=== PATIENT | male | born 1960 | race African-American/Black ===

== ENCOUNTER 2017-04-27 16:07 | Observation (INO) | payer OTHER ==
[~2017-04-27] VITALS: Ht 175.3 cm; Wt 93.0 kg
[~2017-04-27 16:07] MED LIST: AMLO10 PO; ASPI81 CHEW; CARB100C PO; CLON1TAB PO; LEVE500 PO; METO25CR PO; METO50CR PO; SERT50 PO; SPIR50TA21 PO; ULTR50TA PO
[2017-04-27 16:29] VITALS: BP 190/103; PULSE 65; RESP 20; TEMP 98.9; O2SAT 99
[2017-04-27 17:00] VITALS: RESP 18; O2SAT 99
[2017-04-27] MEDS ORDERED: SODIUM CHLORIDE 0.9% FLUSH 10 ML FLUSH IVF PRN (17:00)
[2017-04-27] MEDS ORDERED: ASPIRIN 81 MG CHEW TAB PO ONE (17:00)
[2017-04-27] MEDS ORDERED: LOSA50TA PO (17:06)
[2017-04-27] MEDS ORDERED: CLON0.5T PO (17:06)
[2017-04-27] MEDS ORDERED: KEPP750T PO (17:06)
[2017-04-27] MEDS ORDERED: ASPI81TA81 PO (17:06)
--- NOTE | 2017-04-27 17:07 | PD ---
HPI Chief Complaint: Chest Pain Time Seen by Provider: 17:01 Travel History International Travel<30 days: No Contact w/Intl Traveler<30days: No Traveled to known affect area: No History of Present Illness HPI Patient is a 57 year old male presenting to the emergency evaluation of chest pain. Patient states pain is intermittent, sharp, stabbing and pressure-like. It lasts for several minutes. He reports nausea and radiation to left arm. He denies any shortness of breath, vomiting, fever, chills. Patient had this same incident to 3 weeks ago, he was admitted to [facility] at that time. Patient has an implanted loop recorder that was placed several months ago. He recently started seeing a music orchestrator, Dr. Fabian. Past medical history significant for hypertension, hyperlipidemia, depression, PTSD, A. fib with ablation, SVT. Loop recorder was interrogated during his last visit and he was noted to have incidences of SVT per his report. PFSH Past Medical History Hx Anticoagulant Therapy: Yes (BABY ASPIRIN DAILY ) Atrial Fibrillation: Yes (status post ablation) Depression: Yes Heart Rhythm Problems: Yes (SVT, atrial fibrillation status post ablation) High Cholesterol: Yes Chest Pain: Yes Diabetes: No (See EMR) Endocrine: No Gastrointestinal Disorders: Yes Hypertension: Yes Immune Disorder: No Psychiatric: Yes (PTSD) Past Surgical History Genitourinary Surgery: Yes ("TUMOR REMOVED FROM VESCULAR TUBE") Other Surgery: Yes Social History Alcohol Use: No Tobacco Use: No Substance Use: No Allergies-Medications (Allergen,Severity, Reaction): Coded Allergies: Flexeril (Verified Allergy, Intermediate, Itching, 04/27/17) Reported Meds & Prescriptions Reported Meds & Active Scripts Active Reported Aspir-81 (Aspirin) 81 Mg Tabdr 81 Mg PO DAILY Clonazepam 0.5 Mg Tab 0.5 Mg PO BID Keppra (Levetiracetam) 750 Mg Tab 1,500 Mg PO BID Losartan (Losartan Potassium) 50 Mg Tab 50 Mg PO BID Review of Systems Except as stated in HPI: all other systems reviewed are Neg HENT: No: Headaches, Lightheadedness Cardiovascular: Positive: Chest Pain or Discomfort, No: Palpitations, Tachycardia Respiratory: No: Shortness of Breath Gastrointestinal: Positive: Nausea Musculoskeletal: No: Myalgias Neurologic: No: Weakness, Dizziness, Focal Abnormalities Physical Exam Narrative GENERAL: Well-developed, well-nourished, well-appearing male SKIN: Warm and dry. HEAD: Atraumatic. Normocephalic. EYES: Pupils equal and round. No scleral icterus. No injection or drainage. ENT: No nasal bleeding or discharge. Mucous membranes pink and moist. NECK: Trachea midline. No JVD. CARDIOVASCULAR: Regular rate and rhythm. RESPIRATORY: No accessory muscle use. Clear to auscultation. Breath sounds equal bilaterally. GASTROINTESTINAL: Abdomen soft, non-tender, nondistended. Hepatic and splenic margins not palpable. MUSCULOSKELETAL: Extremities without clubbing, cyanosis, or edema. No obvious deformities. NEUROLOGICAL: Awake and alert. No obvious cranial nerve deficits. Motor grossly within normal limits. Five out of 5 muscle strength in the arms and legs. Normal speech. PSYCHIATRIC: Appropriate mood and affect; insight and judgment normal. Data Data Last Documented VS Vital Signs Date Time Temp Pulse Resp B/P Pulse Ox O2 Delivery O2 Flow Rate FiO2 04/27/17 19:50 145/71 04/27/17 18:15 68 17 99 Room Air 04/27/17 16:29 98.9 Orders Electrocardiogram (04/27/17 16:49) Ckmb (Isoenzyme) Profile (04/27/17 16:49) Complete Blood Count With Diff (04/27/17 16:49) Comprehensive Metabolic Panel (04/27/17 16:49) Magnesium (Mg) (04/27/17 16:49) Prothrombin Time / Inr (Pt) (04/27/17 16:49) Act Partial Throm Time (Ptt) (04/27/17 16:49) Troponin I (04/27/17 16:49) Lipase (04/27/17 16:49) Chest, Single Ap (04/27/17 16:49) Ecg Monitoring (04/27/17 16:49) Bilateral Bp Monitoring (04/27/17 16:49) Iv Access Insert/Monitor (04/27/17 16:49) Oximetry (04/27/17 16:49) Oxygen Administration (04/27/17 16:49) Aspirin Chew (Aspirin Chew) (04/27/17 17:00) Sodium Chloride 0.9% Flush (Ns Flush) (04/27/17 17:00) CKMB (04/27/17 17:00) CKMB% (04/27/17 17:00) Nitroglycerin Sl (Nitrostat Sl) (04/27/17 18:30) Morphine Inj (Morphine Inj) (04/27/17 18:30) Ondansetron Inj (Zofran Inj) (04/27/17 18:30) Hydralazine Inj (Apresoline Inj) (04/27/17 18:45) Activity Bed Rest With Brp (04/27/17 19:50) Vital Signs (Adult) Q4H (04/27/17 19:50) Cardiac Rhythm .As Directed (04/27/17 19:50) Notify Dr: Other .PRN (04/27/17 19:50) Notify Dr. Parameters (04/27/17 19:50) Resp Oxygen Nasal Cannula (04/27/17 ) Diet Npo (04/28/17 Breakfast) Ckmb (Isoenzyme) Profile (04/27/17 19:50) Ckmb (Isoenzyme) Profile (04/27/17 22:50) Troponin I (04/27/17 19:50) Troponin I (04/27/17 22:50) Electrocardiogram (04/27/17 19:50) Electrocardiogram (04/27/17 22:50) ^ Obtain (04/27/17 19:50) Sodium Chloride 0.9% Flush (Ns Flush) (04/27/17 20:00) Sodium Chloride 0.9% Flush (Ns Flush) (04/27/17 21:00) Acetaminophen (Tylenol) (04/27/17 20:00) Ondansetron Inj (Zofran Inj) (04/27/17 20:00) Nitroglycerin Sl (Nitrostat Sl) (04/27/17 20:00) Lead Nitrate Processor / Telemetry COMFORT.Q8H (04/27/17 19:50) Labs Laboratory Tests Test 04/27/17 04/27/17 17:00 18:50 Sodium Level 144 MEQ/L Potassium Level 4.1 MEQ/L Chloride Level 108 MEQ/L Carbon Dioxide Level 28.2 MEQ/L Anion Gap 8 MEQ/L Blood Urea Nitrogen 16 MG/DL Creatinine 1.11 MG/DL Estimat Glomerular Filtration 83 ML/MIN Rate Random Glucose 79 MG/DL Calcium Level 8.8 MG/DL Magnesium Level 2.0 MG/DL Total Bilirubin 0.5 MG/DL Aspartate Amino Transf 34 U/L (AST/SGOT) Alanine Aminotransferase 32 U/L (ALT/SGPT) Alkaline Phosphatase 66 U/L Total Creatine Kinase 359 U/L Creatine Kinase MB 1.0 NG/ML Creatine Kinase MB % 0.3 % Troponin I LESS THAN 0.02 NG/ML Total Protein 7.5 GM/DL Albumin 3.6 GM/DL Lipase 315 U/L White Blood Count 4.7 TH/MM3 Red Blood Count 4.68 MIL/MM3 Hemoglobin 12.4 GM/DL Hematocrit 38.3 % Mean Corpuscular Volume 81.9 FL Mean Corpuscular Hemoglobin 26.5 PG Mean Corpuscular Hemoglobin 32.4 % Concent Red Cell Distribution Width 14.9 % Platelet Count 249 TH/MM3 Mean Platelet Volume 8.2 FL Neutrophils (%) (Auto) 58.8 % Lymphocytes (%) (Auto) 29.9 % Monocytes (%) (Auto) 8.8 % Eosinophils (%) (Auto) 1.3 % Basophils (%) (Auto) 1.2 % Neutrophils # (Auto) 2.8 TH/MM3 Lymphocytes # (Auto) 1.4 TH/MM3 Monocytes # (Auto) 0.4 TH/MM3 Eosinophils # (Auto) 0.1 TH/MM3 Basophils # (Auto) 0.1 TH/MM3 CBC Comment DIFF FINAL Differential Comment Prothrombin Time 10.4 SEC Prothromb Time International 0.9 RATIO Ratio Activated Partial 25.9 SEC Thromboplast Time MDM Medical Decision Making Medical Screen Exam Complete: Yes Emergency Medical Condition: Yes Interpretation(s) Last Impressions Chest X-Ray 04/27/17 2778 Signed Impressions: Service Date/Time: Thursday, April 27, 2017 16:55 - CONCLUSION: Normal examination. Gabriel Wang MD Vital Signs Date Time Temp Pulse Resp B/P Pulse Ox O2 Delivery O2 Flow Rate FiO2 04/27/17 19:50 145/71 04/27/17 18:15 68 17 211/101 99 Room Air 04/27/17 17:00 99 Room Air 04/27/17 17:00 18 99 Room Air 04/27/17 16:29 98.9 65 20 190/103 99 Laboratory Tests Test 04/27/17 04/27/17 17:00 18:50 Sodium Level 144 MEQ/L Potassium Level 4.1 MEQ/L Chloride Level 108 MEQ/L Carbon Dioxide Level 28.2 MEQ/L Anion Gap 8 MEQ/L Blood Urea Nitrogen 16 MG/DL Creatinine 1.11 MG/DL Estimat Glomerular Filtration 83 ML/MIN Rate Random Glucose 79 MG/DL Calcium Level 8.8 MG/DL Magnesium Level 2.0 MG/DL Total Bilirubin 0.5 MG/DL Aspartate Amino Transf 34 U/L (AST/SGOT) Alanine Aminotransferase 32 U/L (ALT/SGPT) Alkaline Phosphatase 66 U/L Total Creatine Kinase 359 U/L Creatine Kinase MB 1.0 NG/ML Creatine Kinase MB % 0.3 % Troponin I LESS THAN 0.02 NG/ML Total Protein 7.5 GM/DL Albumin 3.6 GM/DL Lipase 315 U/L White Blood Count 4.7 TH/MM3 Red Blood Count 4.68 MIL/MM3 Hemoglobin 12.4 GM/DL Hematocrit 38.3 % Mean Corpuscular Volume 81.9 FL Mean Corpuscular Hemoglobin 26.5 PG Mean Corpuscular Hemoglobin 32.4 % Concent Red Cell Distribution Width 14.9 % Platelet Count 249 TH/MM3 Mean Platelet Volume 8.2 FL Neutrophils (%) (Auto) 58.8 % Lymphocytes (%) (Auto) 29.9 % Monocytes (%) (Auto) 8.8 % Eosinophils (%) (Auto) 1.3 % Basophils (%) (Auto) 1.2 % Neutrophils # (Auto) 2.8 TH/MM3 Lymphocytes # (Auto) 1.4 TH/MM3 Monocytes # (Auto) 0.4 TH/MM3 Eosinophils # (Auto) 0.1 TH/MM3 Basophils # (Auto) 0.1 TH/MM3 CBC Comment DIFF FINAL Differential Comment Prothrombin Time 10.4 SEC Prothromb Time International 0.9 RATIO Ratio Activated Partial 25.9 SEC Thromboplast Time Vital Signs Date Time Temp Pulse Resp B/P Pulse Ox O2 Delivery O2 Flow Rate FiO2 04/27/17 16:29 98.9 65 20 190/103 99 Differential Diagnosis ACS versus unstable angina versus SVT versus metabolic abnormality versus chest wall pain versus other Narrative Course Patient is a 57-year-old male presenting for evaluation of chest pain, he was sent from the [place] [facility]. He had a similar episode 2-3 weeks ago and was admitted to [facility]. Patient is hypertensive on arrival, he reports compliance with blood pressure medications. Labs and imaging ordered and pending. CBC with no acute findings, chemistry with elevated CK at 359, no other acute findings identified Cardiac enzymes negative 1 set Coags are unremarkable Chest x-ray shows no acute disease Patient was hypertensive on arrival, he was given hydralazine which improved his blood pressure. Morphine was given for pain, patient reports resolution. Patient reports a negative stress test in 2014. Patient does not appear to have consistent follow-up. Patient will be placed on the chest pain center. Orders place. Patient is agreeable to plan. Diagnosis Primary Impression: Chest pain Qualified Code: R07.9 - Chest pain, unspecified type Additional Impression: HTN (hypertension) Qualified Code: I10 - Hypertension, unspecified type Admitting Information Admitting Physician Requests: Observation Condition: Stable Sharon Lindquist Apr 27, 2017 17:07
--- NOTE | 2017-04-27 17:18 | RADRPT ---
EXAM DATE/TIME: 04/27/2017 16:55 [facility] COMPARISON: CHEST SINGLE AP, September 17, 2013, 14:14. INDICATIONS : Chest pain today. MEDICAL HISTORY : Hypertension. SURGICAL HISTORY : cardiac recorder ENCOUNTER: Initial ACUITY: 1 day PAIN SCORE: 5/10 LOCATION: Bilateral mid chest FINDINGS: A single view of the chest demonstrates the lungs to be symmetrically aerated without evidence of mas s, infiltrate or effusion. The cardiomediastinal contours are unremarkable. Osseous structures are intact. CONCLUSION: Normal examination. Gabriel Wang MD on April 27, 2017 at 17:17 Board Certified Radiologist. This report was verified electronically.
[2017-04-27 17:36] LABS: ALT (GPT) 32 U/L (12-78)
[2017-04-27 17:47] LABS: ALKALINE PHOSPHATASE 66 U/L (45-117); ANION GAP 8 MEQ/L (5-15); AST (GOT) 34 U/L (15-37); BICARBONATE 28.2 MEQ/L (21.0-32.0); BLOOD UREA NITROGEN 16 MG/DL (7-18); CHLORIDE 108 MEQ/L (98-107); CREATINE KINASE 359 U/L (39-308); GLOMERULAR FILTRATION RATE 83 ML/MIN (>89); POTASSIUM 4.1 MEQ/L (3.5-5.1); SODIUM (NA) 144 MEQ/L (136-145); TOTAL BILIRUBIN ADULT 0.5 MG/DL (0.2-1.0)
[2017-04-27 18:15] VITALS: BP 211/101; PULSE 68; RESP 17; O2SAT 99
[2017-04-27] MEDS ORDERED: NITROGLYCERIN 0.4 MG SL 25 TABS/BTL SL ONE (18:30)
[2017-04-27] MEDS ORDERED: MORPHINE SULFATE 4 MG/ML INJ IV PUSH ONE (18:30)
[2017-04-27] MEDS ORDERED: ONDANSETRON HCL 4 MG/2 ML VIAL IV PUSH ONE (18:30)
[2017-04-27] MEDS ORDERED: hydrALAZINE HCL 20 MG/ML VIAL IV PUSH ONE (18:45)
[2017-04-27 19:15] LABS: AUTOMATED NEUTROPHIL # 2.8 TH/MM3 (1.8-7.7); BASOPHIL # 0.1 TH/MM3 (0-0.2); BASOPHIL % 1.2 % (0.0-2.0); EOSINOPHIL # 0.1 TH/MM3 (0-0.4); EOSINOPHIL % 1.3 % (0.0-4.0); HEMATOCRIT 38.3 % (39.0-51.0); HEMO FLAGS DIFF FINAL; LYMPH % 29.9 % (9.0-44.0); LYMPHOCYTE # 1.4 TH/MM3 (1.0-4.8); MEAN CELL VOLUME 81.9 FL (80.0-100.0); MEAN CORPUSCULAR HEMOGLOBIN 26.5 PG (27.0-34.0); MEAN CORPUSCULAR HGB CONC 32.4 % (32.0-36.0); MONO % 8.8 % (0.0-8.0); NEUT % 58.8 % (16.0-70.0); PLATELET COUNT 249 TH/MM3 (150-450); RED BLOOD COUNT 4.68 MIL/MM3 (4.50-5.90); RED CELL DISTRIBUTION WIDTH 14.9 % (11.6-17.2); WHITE BLOOD COUNT 4.7 TH/MM3 (4.0-11.0)
[2017-04-27 19:46] LABS: APTT (PATIENT) 25.9 SEC (24.3-30.1); INTERNATIONAL NORMALIZED RATIO 0.9 RATIO; PROTHROMBIN TIME - PATIENT 10.4 SEC (9.8-11.6)
[2017-04-27 19:50] VITALS: BP 145/71
[2017-04-27] MEDS ORDERED: ONDANSETRON HCL 4 MG/2 ML VIAL IV PRN (20:00)
[2017-04-27] MEDS ORDERED: NITROGLYCERIN 0.4 MG SL 25 TABS/BTL SL PRN (20:00)
[2017-04-27] MEDS ORDERED: SODIUM CHLORIDE 0.9% FLUSH 10 ML FLUSH IV FLUSH PRN (20:00)
[2017-04-27] MEDS ORDERED: ACETAMINOPHEN 500 MG CPLT PO PRN (20:00)
[2017-04-27 20:08] VITALS: O2SAT 97
[2017-04-27] MEDS: SODIUM CHLORIDE 0.9% FLUSH 10 ML FLUSH IV FLUSH SCH (21:31)
[2017-04-27 21:48] LABS: CREATINE KINASE 300 U/L (39-308)
[2017-04-27 22:45] VITALS: BP 182/99; RESP 16; O2SAT 99
[2017-04-27] MEDS ORDERED: MORPHINE SULFATE 4 MG/ML INJ IV ONE (23:15)
[2017-04-27] MEDS ORDERED: levETIRAcetam 500 MG TAB PO ONE (23:15)
[2017-04-28 00:43] LABS: CREATINE KINASE 279 U/L (39-308)
[2017-04-28 00:56] LABS: CKMB 0.7 NG/ML (0.5-3.6)
[2017-04-28 07:18] VITALS: BP 129/68; PULSE 77; RESP 18; TEMP 98.4; O2SAT 97
[2017-04-28 08:00] VITALS: PULSE 77
[2017-04-28] MEDS ORDERED: clonazePAM 0.5 MG TAB PO PRN (08:00)
[2017-04-28 08:41] VITALS: BP 171/98; PULSE 70; RESP 16; TEMP 97.8; O2SAT 99
[2017-04-28 08:57] VITALS: RESP 16
[2017-04-28 08:58] VITALS: O2SAT 95
[2017-04-28] MEDS: SODIUM CHLORIDE 0.9% FLUSH 10 ML FLUSH IV FLUSH SCH (08:59)
[2017-04-28] MEDS ORDERED: LOSARTAN 50 MG TAB PO SCH (09:00)
[2017-04-28] MEDS ORDERED: levETIRAcetam 500 MG TAB PO SCH (09:00)
--- NOTE | 2017-04-28 09:18 | HHI.HP ---
HPI Primary Care Physician [facility] Chief Complaint Chest pain History of Present Illness This is a 57-year-old male with history of SVT and A. fib with an ablation for SVT in 2016 that presents complaining of a sharp stabbing discomfort in the left side of his chest/axillary region radiates down his left arm. He had an episode 2 months ago that was similar and was seen at [facility] and had a loop recorder placed. No stress testing was obtained. Last stress test was about 3 years ago. Cannot recall ever having a cardiac he is now referred to follow-up with Dr. Fabian and has an appointment next Tuesday. He had another episode yesterday while driving. Same type characteristic. He went to the [facility] and was brought to the ED. Had another episode in the hospital last night. He believes elapses lasting just a few minutes. Denies shortness breath and diaphoresis. He did feel little nausea. Currently asymptomatic. Review of Systems General: Patient denies fevers, chills recent, and recent travel HEENT: Patient denies headache, sore throat, difficulty swallowing. Cardiovascular: Has the chest discomfort as mentioned above. Denies sensation of heart beating rapidly or irregularly. No syncope. Denies diaphoresis. Respiratory: Denies shortness of breath or inspirational chest discomfort. Denies coughing wheezing or hemoptysis. GI: He was little nauseous. Patient denies vomiting, diarrhea, abdominal pain, bloody stools. Musculoskeletal: Patient denies joint pain or edema. Denies calf pain or edema. Neurovascular: Patient denies numbness, tingling, weakness in extremities. Denies headache. Endocrine: Denies polyuria and polydipsia. Hematologic: Denies easy bruising. Skin: Denies rash or itching. Past Family Social History Allergies: Coded Allergies: Flexeril (Verified Allergy, Intermediate, Itching, 04/27/17) Past Medical History Hypertension, seizure disorder, history of SVT with ablation in 2016. Denies hyperlipidemia diabetes and known coronary artery disease. Past Surgical History An ablation for SVT. Reported Medications Reported Meds & Active Scripts Active Reported Aspir-81 (Aspirin) 81 Mg Tabdr 81 Mg PO DAILY Clonazepam 0.5 Mg Tab 0.5 Mg PO BID Keppra (Levetiracetam) 750 Mg Tab 1,500 Mg PO BID Losartan (Losartan Potassium) 50 Mg Tab 50 Mg PO BID Active Ordered Medications Current Medications Medications (Trade) Dose Ordered Sig/Koko Route Start Time Stop Time Status Last Admin (NS Flush) 2 ml UNSCH PRN IV FLUSH 04/27/17 20:00 (NS Flush) 2 ml BID IV FLUSH 04/27/17 21:00 04/28/17 08:59 (Tylenol) 500 mg Q4H PRN PO 04/27/17 20:00 04/28/17 07:27 (Zofran Inj) 4 mg Q6H PRN IV 04/27/17 20:00 (Nitrostat Sl) 0.4 mg Q5M PRN SL 04/27/17 20:00 (KlonoPIN) 0.5 mg BID PRN PO 04/28/17 08:00 (Keppra) 1,500 mg BID PO 04/28/17 09:00 04/28/17 08:59 (Cozaar) 50 mg BID PO 04/28/17 09:00 04/28/17 08:58 Family History There is family history of CAD. Social History Patient denies tobacco abuse. Denies alcohol or illicit drug use. Physical Exam Vital Signs Vital Signs Date Time Temp Pulse Resp B/P Pulse Ox O2 Delivery O2 Flow Rate FiO2 04/28/17 08:58 95 21 04/28/17 08:57 16 04/28/17 08:41 97.8 70 16 171/98 99 04/28/17 07:18 98.4 77 18 129/68 97 04/27/17 22:45 16 182/99 99 04/27/17 20:08 97 Nasal Cannula 3.00 04/27/17 19:50 145/71 04/27/17 18:15 68 17 211/101 99 Room Air 04/27/17 17:00 99 Room Air 04/27/17 17:00 18 99 Room Air 04/27/17 16:29 98.9 65 20 190/103 99 Physical Exam GENERAL: This is a well-nourished, well-developed patient, in no apparent distress. Patient speaks in clear complete sentences. Patient is pleasant. HEENT: Head is atraumatic and normocephalic. Neck is supple without lymphadenopathy and trachea is midline. No JVD or carotid bruits. CARDIOVASCULAR: Regular rate and rhythm without murmurs, gallops, or rubs. RESPIRATORY: Clear to auscultation. Breath sounds equal bilaterally. No wheezes , rales, or rhonchi. Chest wall is nontender. No use of accessory muscles. GASTROINTESTINAL: Abdomen is nontender, nondistended. Abdomen soft. No obvious pulsatile mass or bruit. No CVA tenderness. Strong femoral pulses bilaterally. Normal bowel sounds in all quadrants. MUSCULOSKELETAL: Patient is moving upper and lower extremities freely. No calf tenderness or edema, no Homans sign. Strong pulses in upper and lower extremities. NEUROLOGICAL: Patient is alert and oriented. Cranial nerves 2-12 are grossly intact. No focal deficits and speech is clear. SKIN: No rash and turgor is normal. Laboratory Laboratory Tests Test 04/27/17 04/27/17 04/27/17 04/27/17 17:00 18:50 21:00 23:50 Sodium Level 144 Potassium Level 4.1 Chloride Level 108 Carbon Dioxide Level 28.2 Anion Gap 8 Blood Urea Nitrogen 16 Creatinine 1.11 Estimat Glomerular Filtration 83 Rate Random Glucose 79 Calcium Level 8.8 Magnesium Level 2.0 Total Bilirubin 0.5 Aspartate Amino Transf 34 (AST/SGOT) Alanine Aminotransferase 32 (ALT/SGPT) Alkaline Phosphatase 66 Total Creatine Kinase 359 300 279 Creatine Kinase MB 1.0 1.0 0.7 Creatine Kinase MB % 0.3 Troponin I LESS THAN 0.02 LESS THAN 0.02 LESS THAN 0.02 Total Protein 7.5 Albumin 3.6 Lipase 315 White Blood Count 4.7 Red Blood Count 4.68 Hemoglobin 12.4 Hematocrit 38.3 Mean Corpuscular Volume 81.9 Mean Corpuscular Hemoglobin 26.5 Mean Corpuscular Hemoglobin 32.4 Concent Red Cell Distribution Width 14.9 Platelet Count 249 Mean Platelet Volume 8.2 Neutrophils (%) (Auto) 58.8 Lymphocytes (%) (Auto) 29.9 Monocytes (%) (Auto) 8.8 Eosinophils (%) (Auto) 1.3 Basophils (%) (Auto) 1.2 Neutrophils # (Auto) 2.8 Lymphocytes # (Auto) 1.4 Monocytes # (Auto) 0.4 Eosinophils # (Auto) 0.1 Basophils # (Auto) 0.1 CBC Comment DIFF FINAL Differential Comment Prothrombin Time 10.4 Prothromb Time International 0.9 Ratio Activated Partial 25.9 Thromboplast Time Result Diagram: 04/27/17 1850 04/27/17 1700 Imaging Last 24 hours Impressions Chest X-Ray 04/27/17 1649 Signed Impressions: Service Date/Time: Thursday, April 27, 2017 16:55 - CONCLUSION: Normal examination. Gabriel Wang MD Course EKGs have nonspecific T-wave changes. Assessment and Plan Assessment and Plan * Chest pain: Patient had serial cardiac enzymes and EKGs for ruling out purposes. He was seen by Dr. Rick Renee of cardiology and the chest and center. We will have his loop recorder interrogated. He will undergo a Avery protocol ETT and likely be discharged home if the stress test is nonischemic. He should continue following up with his gas cutter and his primary care physician. * Hypertension: Continue her medication. * Seizure disorder: Continue current medication. Patient is stable this time. He is agreeable to this plan. Avelino Celis Apr 28, 2017 09:18
[2017-04-28] MEDS ORDERED: METO200T3 PO (11:23)
--- NOTE | 2017-04-28 11:24 | HHI.DCPOC ---
Discharge Care Plan Diagnosis: (1) Chest pain (2) HTN (hypertension) Goals to Promote Your Health * To prevent worsening of your condition and complications * To maintain your health at the optimal level Directions to Meet Your Goals Take your medications as prescribed Follow your dietary instruction Follow activity as directed Keep your appointments as scheduled Take your immunizations and boosters as scheduled If your symptoms worsen call your PCP, if no PCP go to Urgent Care Center or Emergency Room Smoking is Dangerous to Your Health. Avoid second hand smoke Call the 24-hour hour crisis hotline for domestic abuse at Avelino Celis Apr 28, 2017 11:23
--- NOTE | 2017-04-29 12:49 | EKG ---
Date Performed: 04/27/2017 Time Performed: 16:40:44 PTAGE: 57 years EKG: Sinus rhythm MODERATE VOLTAGE CRITERIA FOR LVH, CONSIDER NORMAL VARIANT NONSPECIFIC T-WAVE ABNORMALITY BORDERLINE ECG PREVIOUS TRACING : 11/21/2015 05.15 Since previous tracing, no significant change noted DOCTOR: Rick Renee Interpretating Date/Time 04/29/2017 12:48:08
--- NOTE | 2017-04-29 12:49 | EKG ---
Date Performed: 04/28/2017 Time Performed: 00:32:34 PTAGE: 57 years EKG: Sinus rhythm MINIMAL VOLTAGE CRITERIA FOR LVH, CONSIDER NORMAL VARIANT NONSPECIFIC T-WAVE ABNORMALITY BORDERLINE ECG PREVIOUS TRACING : 04/27/2017 21.41 Since previous tracing, no significant change noted DOCTOR: Rick Renee Interpretating Date/Time 04/29/2017 12:47:47
--- NOTE | 2017-04-29 12:49 | EKG ---
Date Performed: 04/27/2017 Time Performed: 21:41:23 PTAGE: 57 years EKG: Sinus rhythm WITH SINUS ARRHYTHMIA NONSPECIFIC T-WAVE ABNORMALITY BORDERLINE ECG PREVIOUS TRACING : 04/27/2017 16.40 Since previous tracing, no significant change noted DOCTOR: Rick Renee Interpretating Date/Time 04/29/2017 12:47:57
--- NOTE | 2017-04-29 12:53 | TR ---
Date Performed: 04/28/2017 Time Performed: 08:22:17 DOCTOR: Rick Renee DRUG LIST: CLINICAL HISTORY: REASON FOR TEST: REASON FOR ENDING: OBSERVATION: CONCLUSION: ALLY PROTOCOL. NO CP. TEST STOPPED AFTER EXCEEDING GOAL HR SECONADRY TO SOB AND LE G FATIGUE.Maximum AD=171 % Max HR Achieved=94.0% Total Exercise Time=2:43 COMMENTS: ST depression noted at peak resolving immediately in recovery. This is likely is a nor mal variant
== END 2017-04-28 12:34 | disposition home or self-care (01) ==
LOC: NEPC 16:07 → NEDA 21:11 → NEPFCDU 22:32
PROVIDERS: ADMIT Internal Medicine Cardiovascular Disease; ATTEND Internal Medicine Cardiovascular Disease
DX: R07.89 Other chest pain (principal); I10 Essential (primary) hypertension; G40.909 Epilepsy, unspecified, not intractable, without status epilepticus; E78.5 Hyperlipidemia, unspecified; F32.9 Major depressive disorder, single episode, unspecified; I48.91 Unspecified atrial fibrillation; Z79.01 Long term (current) use of anticoagulants; F43.10 Post-traumatic stress disorder, unspecified; E11.9 Type 2 diabetes mellitus without complications; E78.00 Pure hypercholesterolemia, unspecified; Z79.82 Long term (current) use of aspirin; Z79.899 Other long term (current) drug therapy
CPT/HCPCS: 71010; 80053; 82550; 82552; 83690; 83735; 84484; 85025; 85610; 85730; 93005; 93017; 96374; 96375; 99285; G0378; J0360; J2270; J2405